=== PATIENT | male | born 1975 | race Caucasian/White ===

== ENCOUNTER 2018-11-22 14:19 | Inpatient (IN) | payer OTHER ==
[~2018-11-22] VITALS: Ht 172.7 cm; Wt 78.2 kg
[~2018-11-22 14:19] MED LIST: ASPI-515 PO
[2018-11-22 17:48] VITALS: BP 112/78
[2018-11-22 19:45] VITALS: BP 107/76
[2018-11-22] MEDS ORDERED: TEMAZEPAM 15 MG CAPSULE PO PRN (20:00)
[2018-11-22] MEDS ORDERED: ONDANSETRON ODT 4 MG PO PRN (20:00)
[2018-11-22] MEDS ORDERED: IBUPROFEN 600 MG TABLET PO PRN (20:00)
[2018-11-22] MEDS ORDERED: LIDODERM 5% PATCH TD PRN (20:00)
[2018-11-22] MEDS ORDERED: DOCUSATE 100 MG CAPSULE PO PRN (20:00)
[2018-11-22] MEDS: ENOXAPARIN 40 MG/0.4 ML SQ SCH (20:30)
[2018-11-23 01:15] VITALS: BP 106/79
[2018-11-23 05:54] LABS: ANION GAP 7 mmol/L (5-15); CALCIUM 8.7 mg/dL (8.5-10.1); CHLORIDE 103 mmol/L (98-107)
[2018-11-23 05:56] LABS: CREATININE 1.22 mg/dL (0.7-1.3)
[2018-11-23 06:02] LABS: BASOPHILS # (AUTO) 0.05 x10^3/uL (0-0.1); BASOPHILS % (AUTO) 1 % (0-1); EOSINOPHILS # (AUTO) 1.13 x10^3/uL (0-0.4); EOSINOPHILS % (AUTO) 14 % (1-7); LYMPHOCYTES # (AUTO) 1.42 x10^3/uL (1-3.4); LYMPHOCYTES % (AUTO) 18 % (22-44); MD NO; MEAN CORPUSCULAR HEMOGLOBIN 30.2 pg (27.5-34.5); MEAN CORPUSCULAR HGB CONC 33.2 g/dL (33.2-36.2); MEAN CORPUSCULAR VOLUME 90.9 fL (81-97); MEAN PLATELET VOLUME 9.9 fL (7.4-10.4); MONOCYTES # (AUTO) 0.75 x10^3/uL (0.2-0.8); MONOCYTES % (AUTO) 10 % (2-9); NEUTROPHILS # (AUTO) 4.54 x10^3/uL (1.8-6.8); NEUTROPHILS % (AUTO) 58 % (42-75); PLATELET COUNT 222 x10^3/uL (130-400); RED BLOOD COUNT 5.45 x10^6/uL (4.38-5.82)
[2018-11-23 06:54] VITALS: BP 113/80
[2018-11-23 08:18] LABS: TROPONIN I < 0.015 ng/mL (0.000-0.045)
[2018-11-23 12:30] VITALS: BP 109/77
[2018-11-23] MEDS: CARVEDILOL 3.125 MG TABLET PO SCH (18:18)
[2018-11-23 19:58] VITALS: BP 99/68
[2018-11-23] MEDS: ENOXAPARIN 40 MG/0.4 ML SQ SCH (20:26)
[2018-11-24 01:30] VITALS: BP 100/68
[2018-11-24 05:00] LABS: BASOPHILS # (AUTO) 0.12 x10^3/uL (0-0.1); BASOPHILS % (AUTO) 2 % (0-1); EOSINOPHILS # (AUTO) 1.25 x10^3/uL (0-0.4); EOSINOPHILS % (AUTO) 17 % (1-7); LYMPHOCYTES # (AUTO) 1.65 x10^3/uL (1-3.4); LYMPHOCYTES % (AUTO) 23 % (22-44); MD NO; MEAN CORPUSCULAR HEMOGLOBIN 30.1 pg (27.5-34.5); MEAN CORPUSCULAR HGB CONC 32.9 g/dL (33.2-36.2); MEAN CORPUSCULAR VOLUME 91.4 fL (81-97); MEAN PLATELET VOLUME 9.8 fL (7.4-10.4); MONOCYTES # (AUTO) 0.61 x10^3/uL (0.2-0.8); MONOCYTES % (AUTO) 9 % (2-9); NEUTROPHILS # (AUTO) 3.52 x10^3/uL (1.8-6.8); NEUTROPHILS % (AUTO) 49 % (42-75); PLATELET COUNT 228 x10^3/uL (130-400); RED BLOOD COUNT 5.34 x10^6/uL (4.38-5.82)
[2018-11-24 05:06] LABS: ALANINE AMINOTRANSFERASE 80 U/L (12-78); ALBUMIN 3.7 g/dL (3.4-5.0); ANION GAP 5 mmol/L (5-15); CALCIUM 8.7 mg/dL (8.5-10.1); CHLORIDE 104 mmol/L (98-107); CREATININE 1.09 mg/dL (0.7-1.3)
[2018-11-24 05:08] LABS: ALKALINE PHOSPHATASE 45 U/L (45-117); BILIRUBIN,TOTAL 1.1 mg/dL (0.2-1.0); TOTAL PROTEIN 6.7 g/dL (6.4-8.2)
[2018-11-24 05:47] VITALS: BP 105/74
[2018-11-24] MEDS: CARVEDILOL 3.125 MG TABLET PO SCH ×2 (05:48→17:45)
[2018-11-24 07:00] VITALS: BP 102/74
[2018-11-24] MEDS: SPIRONOLACTONE 25 MG TABLET PO SCH (10:26)
[2018-11-24] MEDS: FUROSEMIDE 20 MG TABLET PO SCH (10:26)
[2018-11-24 13:40] VITALS: BP 97/66
[2018-11-24 19:25] VITALS: BP 98/64
[2018-11-24] MEDS: ENOXAPARIN 40 MG/0.4 ML SQ SCH (20:17)
[2018-11-25 03:13] VITALS: BP 95/68
[2018-11-25 05:09] LABS: BASOPHILS # (AUTO) 0.15 x10^3/uL (0-0.1); BASOPHILS % (AUTO) 2 % (0-1); EOSINOPHILS # (AUTO) 1.28 x10^3/uL (0-0.4); EOSINOPHILS % (AUTO) 17 % (1-7); LYMPHOCYTES # (AUTO) 1.64 x10^3/uL (1-3.4); LYMPHOCYTES % (AUTO) 22 % (22-44); MD NO; MEAN CORPUSCULAR HGB CONC 33.1 g/dL (33.2-36.2); MEAN CORPUSCULAR VOLUME 90.6 fL (81-97); MEAN PLATELET VOLUME 9.8 fL (7.4-10.4); MONOCYTES # (AUTO) 0.56 x10^3/uL (0.2-0.8); MONOCYTES % (AUTO) 8 % (2-9); NEUTROPHILS # (AUTO) 3.71 x10^3/uL (1.8-6.8); NEUTROPHILS % (AUTO) 51 % (42-75); PLATELET COUNT 217 x10^3/uL (130-400); RED BLOOD COUNT 5.41 x10^6/uL (4.38-5.82); RED CELL DISTRIBUTION WIDTH 13.8 % (9.4-14.8)
[2018-11-25 05:20] LABS: ALBUMIN 3.6 g/dL (3.4-5.0); ANION GAP 4 mmol/L (5-15); CALCIUM 8.6 mg/dL (8.5-10.1); CHLORIDE 102 mmol/L (98-107)
[2018-11-25 05:32] LABS: ALANINE AMINOTRANSFERASE 70 U/L (12-78); ALKALINE PHOSPHATASE 44 U/L (45-117); BILIRUBIN,TOTAL 0.9 mg/dL (0.2-1.0); CHOLESTEROL, TOTAL 150 mg/dL (140-239); CREATININE 1.11 mg/dL (0.7-1.3); HDL CHOL % 17 % (26-37); HDL CHOLESTEROL (DIRECT) 25 mg/dL (40-60); LDL CHOLESTEROL,CALCULATED 98 mg/dL (54-169); LDL/HDL RATIO 3.9 (0.5-3.0); TOTAL PROTEIN 6.7 g/dL (6.4-8.2); TRIGLYCERIDES 136 mg/dL (50-200); VLDL CHOLESTEROL 27 mg/dL (0-25)
[2018-11-25] MEDS: CARVEDILOL 3.125 MG TABLET PO SCH ×2 (05:38→18:00)
[2018-11-25 07:16] VITALS: BP 96/65
[2018-11-25] MEDS: FUROSEMIDE 20 MG TABLET PO SCH (08:36)
[2018-11-25] MEDS: SPIRONOLACTONE 25 MG TABLET PO SCH (08:36)
[2018-11-25 09:39] VITALS: BP 100/66
[2018-11-25] MEDS: LISINOPRIL 5 MG TABLET PO SCH (09:42)
[2018-11-25] MEDS: SODIUM CHLORIDE 0.9% 1,000 ML IV SCH (13:55)
[2018-11-25 14:01] VITALS: BP 110/71
[2018-11-25] MEDS ORDERED: FENTANYL PF 100 MCG/2ML ONE (14:38)
[2018-11-25] MEDS ORDERED: MIDAZOLAM 1 MG/ML, 2ML ONE (14:38)
[2018-11-25] MEDS ORDERED: HEPARIN 1,000 UNITS/ML, 10ML ONE (14:38)
[2018-11-25] MEDS ORDERED: VERAPAMIL 2.5 MG/ML, 2ML ONE (14:38)
[2018-11-25] MEDS ORDERED: LIDOCAINE-MPF 1%, 5ML ONE (14:49)
[2018-11-25] MEDS: ENOXAPARIN 40 MG/0.4 ML SQ SCH (20:15)
[2018-11-25 21:18] VITALS: BP 91/69
[2018-11-26 02:00] VITALS: BP 96/64
[2018-11-26 05:33] LABS: BASOPHILS # (AUTO) 0.05 x10^3/uL (0-0.1); BASOPHILS % (AUTO) 1 % (0-1); EOSINOPHILS # (AUTO) 1.07 x10^3/uL (0-0.4); EOSINOPHILS % (AUTO) 14 % (1-7); LYMPHOCYTES # (AUTO) 1.58 x10^3/uL (1-3.4); LYMPHOCYTES % (AUTO) 21 % (22-44); MD NO; MEAN CORPUSCULAR HGB CONC 32.8 g/dL (33.2-36.2); MEAN CORPUSCULAR VOLUME 91.7 fL (81-97); MEAN PLATELET VOLUME 9.3 fL (7.4-10.4); MONOCYTES # (AUTO) 0.61 x10^3/uL (0.2-0.8); MONOCYTES % (AUTO) 8 % (2-9); NEUTROPHILS % (AUTO) 55 % (42-75); PLATELET COUNT 224 x10^3/uL (130-400); RED BLOOD COUNT 5.56 x10^6/uL (4.38-5.82); RED CELL DISTRIBUTION WIDTH 13.8 % (9.4-14.8)
[2018-11-26 05:46] LABS: ALBUMIN 3.8 g/dL (3.4-5.0); ANION GAP 5 mmol/L (5-15); CALCIUM 8.9 mg/dL (8.5-10.1); CHLORIDE 105 mmol/L (98-107)
[2018-11-26 05:50] LABS: ALANINE AMINOTRANSFERASE 67 U/L (12-78); ALKALINE PHOSPHATASE 48 U/L (45-117); BILIRUBIN,TOTAL 0.8 mg/dL (0.2-1.0); CREATININE 1.06 mg/dL (0.7-1.3)
[2018-11-26 05:58] VITALS: BP 95/64
[2018-11-26] MEDS: CARVEDILOL 3.125 MG TABLET PO SCH (05:59)
[2018-11-26 06:32] VITALS: BP 97/66
[2018-11-26] MEDS: SODIUM CHLORIDE 0.9% 1,000 ML IV SCH (08:47)
[2018-11-26] MEDS: SPIRONOLACTONE 25 MG TABLET PO SCH (08:48)
[2018-11-26] MEDS: FUROSEMIDE 20 MG TABLET PO SCH (08:48)
[2018-11-26] MEDS: LISINOPRIL 5 MG TABLET PO SCH (08:48)
[2018-11-26 09:08] VITALS: BP 101/68
[2018-11-26] MEDS ORDERED: FURO20TA3 PO (09:32)
[2018-11-26] MEDS ORDERED: CARV3.1212 PO (09:32)
[2018-11-26] MEDS ORDERED: LISI5TAB7 PO (09:32)
[2018-11-26] MEDS ORDERED: SPIR25TA PO (09:32)
[2018-11-26] MEDS ORDERED: CARVEDILOL 3.125 MG TABLET PO SCH (18:00)
== END 2018-11-26 12:09 | disposition home or self-care (01) | DRG 286 ==
LOC: 5SO 17:33 → DCLOUNGE 11-26 12:04
PROVIDERS: ADMIT Family Medicine; ATTEND Family Medicine
PROC: 4A023N7 Measurement of Cardiac Sampling and Pressure, Left Heart, Percutaneous Approach (ICD-10-PCS; principal; 2018-11-25)
PROC: B211YZZ Fluoroscopy of Multiple Coronary Arteries using Other Contrast (ICD-10-PCS; 2018-11-25)
PROC: B215YZZ Fluoroscopy of Left Heart using Other Contrast (ICD-10-PCS; 2018-11-25)
DX: I50.43 Acute on chronic combined systolic (congestive) and diastolic (congestive) heart failure (principal); J96.20 Acute and chronic respiratory failure, unspecified whether with hypoxia or hypercapnia; I42.9 Cardiomyopathy, unspecified; K76.1 Chronic passive congestion of liver; K75.9 Inflammatory liver disease, unspecified; R73.03 Prediabetes; Z79.899 Other long term (current) drug therapy; Z80.42 Family history of malignant neoplasm of prostate; Z83.3 Family history of diabetes mellitus; Z87.891 Personal history of nicotine dependence; I34.0 Nonrheumatic mitral (valve) insufficiency
CPT/HCPCS: 36415; 93458; C8929; 80048; 80053; 80061; 80074; 83735; 83880; 84443; 84484; 85025; 93005; 99156; C1769; C1894; G0378; J1644; J1650; J2250; J3010; Q9957; J7030; Q9967

== ENCOUNTER → 2019-05-05 | Outpatient (CLI) | payer OTHER ==
[~2019-05-05] MED LIST changes: +CARV3.1212 PO; +FURO20TA3 PO; +LISI5TAB7 PO; +SPIR25TA PO
== END | disposition home or self-care (01) ==
LOC: CFH 08:45
PROVIDERS: ATTEND Physician Assistant Medical
DX: I08.1 Rheumatic disorders of both mitral and tricuspid valves (principal); R06.02 Shortness of breath
CPT/HCPCS: 93306

== ENCOUNTER 2020-04-02 07:03 | Outpatient (CLI) | payer OTHER | END 2020-04-02 23:59 | disposition home or self-care (01) | LOC: CVU 07:03 | PROVIDERS: ATTEND Internal Medicine Cardiovascular Disease | DX: I11.0 Hypertensive heart disease with heart failure (principal); I50.22 Chronic systolic (congestive) heart failure | CPT/HCPCS: 93306; 93356 ==